=== PATIENT | female | born 1985 ===

== ENCOUNTER 2024-01-03 10:22 | Outpatient (RCR) | payer OTHER, SELFPAY ==
--- NOTE | 2024-01-03 10:44 | OT.OP.TRT ---
Visit Care Team Role Provider Type PHIL Resendiz Attending Provider Non-Staff Family Provider Primary Care Provider Referring Provider Specialty: Nursing Address: [address] [place] [address], [place], [address] Email: Marleen was referred to OT secondary to L middle finger discomfort; she reported that pain/discomfort is inconsistent in its presentation (w/ no identifiable triggers). Pain can be present for up to 2 weeks. She indicated No pain on Whole Body Pain Assessment Grid relative to lateral/radial sided PIPJ pain/discomfort vs 3 out of 10 on Hand Pain Assessment Grid relative to lateral/radial sided PIPJ pain/discomfort of volar and dorsal surfaces of the joint vs verbal report of no pain. (-) swelling of L 3rd digit noted; (-) observed locking of 3rd digit into flexion; Marleen also denied locking of 3rd digit into flex. (-) protective guarding of the L hand relative to object manipulation or ROM. Good active flexion and extension of all joints of the L 3rd digit. Rec returning to PCP as symptoms present (as able to) and/or consider accessing local walk-in or urgent care clinic as symptoms present. No OT is needed as this time.
== END 2024-01-05 14:45 | disposition home or self-care (01) ==
LOC: OT 10:22
PROVIDERS: Family Provider Nurse Practitioner Family; PCP Nurse Practitioner Family; Referring Provider Nurse Practitioner Family; Visit Provider Nurse Practitioner Family
DX: M79.645 Pain in left finger(s) (principal)